=== PATIENT | female | born 1980 ===

== ENCOUNTER 2023-01-20 09:00 | Inpatient (IN) | payer OTHER ==
[~2023-01-20] VITALS: Ht 175.3 cm; Wt 116.1 kg
[2023-01-20] MEDS ORDERED: ATACAND32 MG PO (11:50)
[2023-01-20] MEDS ORDERED: BISOPROLOL FUMAR5 MG PO (11:51)
[2023-01-20] MEDS ORDERED: SERTRALINE HCL50 MG PO (11:51)
[2023-01-20] MEDS ORDERED: VASOFLEX SOFTG1 EACH PO (11:52)
[2023-01-20] MEDS ORDERED: HYDROCHLOROTH12.5 MG PO (11:56)
[2023-01-23 16:13] LABS: HEMATOCRIT 27.8 % (36.0-45.00); HEMOGLOBIN 9.2 g/dL (12.0-15.00); MEAN CELL VOLUME 81.7 fL (80.00-100.00); MEAN CORPUSCULAR HGB CONC 33.1 g/dl (32.0-36.0); PLATELET COUNT 339 K/uL (150-450); RED CELL DISTRIBUTION WIDTH 15.7 % (11.5-14.5)
[2023-01-24 04:44] LABS: HEMATOCRIT 26.4 % (36.0-45.00); MEAN CELL VOLUME 79.8 fL (80.00-100.00); MEAN CORPUSCULAR HEMOGLOBIN 27.1 pg (27.00-32.0); MEAN CORPUSCULAR HGB CONC 33.9 g/dl (32.0-36.0); PLATELET COUNT 324 K/uL (150-450); RED BLOOD COUNT 3.31 M/uL (4.00-6.00)
[2023-01-25] MEDS ORDERED: POLY119PG PO (06:52)
[2023-01-25] MEDS ORDERED: GABAPENTIN300 MG PO (06:52)
[2023-01-25] MEDS ORDERED: IBUPROFEN800 MG PO (06:52)
[2023-01-25] MEDS ORDERED: SIMETHICONE125 M1 PO (06:52)
[2023-01-25] MEDS ORDERED: FEROCON CAPSUL1 EACH PO (06:53)
[2023-01-25] MEDS ORDERED: AMOX1TAB5 PO (06:53)
== END 2023-01-25 11:18 | disposition home or self-care (01) | DRG 743 ==
LOC: OB/GYN 01-23 05:20 → O/R 01-23 05:20 → OB/GYN 01-23 09:00
PROVIDERS: ADMIT Obstetrics & Gynecology; ATTEND Obstetrics & Gynecology
PROC: 0UT70ZZ Resection of Bilateral Fallopian Tubes, Open Approach (ICD-10-PCS; 2023-01-23)
PROC: 0UT90ZZ Resection of Uterus, Open Approach (ICD-10-PCS; principal; 2023-01-23 10:45)
DX: D25.1 Intramural leiomyoma of uterus (principal); N72 Inflammatory disease of cervix uteri; Z20.822 Contact with and (suspected) exposure to COVID-19